=== PATIENT | female | born 1945 | race Caucasian/White ===

== ENCOUNTER 2019-01-13 05:34 | Inpatient (IN) | payer OTHER ==
[2019-01-01 13:09] LABS: HEMATOCRIT 41.5 % (37.0-47.0); HEMOGLOBIN 13.8 gm/dL (12.0-15.0); MCH 29.6 pg (26.0-34.0); MCHC 33.3 g/dL (28.0-37.0); RBC 4.67 mil/uL (4.20-5.00); RDW 13.6 % (10.5-14.5); WBC 5.8 thou/uL (4.0-11.0)
[2019-01-01 13:10] LABS: URINE BILIRUBIN NEGATIVE (Negative); URINE BLOOD TRACE (Negative); URINE CLARITY CLEAR; URINE COLOR YELLOW; URINE GLUCOSE-RANDOM* NEGATIVE (Negative); URINE KETONES NEGATIVE (Negative); URINE LEUKOCYTES-REFLEX NEGATIVE (Negative); URINE NITRITE-REFLEX NEGATIVE (Negative); URINE PROTEIN (DIPSTICK) NEGATIVE (Negative); URINE SPECIFIC GRAVITY <= 1.005 (1.005-1.035); URINE UROBILINOGEN 0.2 E.U./dl (0.2-1.0)
[2019-01-01 13:19] LABS: CALCIUM 9.4 mg/dL (8.5-10.1); CREATININE 0.8 mg/dL (0.6-1.0); POTASSIUM 3.9 mmol/L (3.5-5.1)
[2019-01-01 13:21] LABS: INR 1.1; PROTIME 11.5 Seconds (9.3-11.4)
[~2019-01-13] VITALS: Ht 162.6 cm; Wt 86.6 kg
[~2019-01-13 05:34] MED LIST: ADVIL200 M3 PO; ARIMIDEX1 MG PO; ASPIR 8181 MG PO; ASPIRIN81 M2 PO; AZELASTINE137 MCG/0. NASAL; BENEFIBER152 GM PO; CITRACAL PETITES PO; COLACE100 MG PO; ELIDEL CREAM 1%30 G1 TOP; FLONASE 0.05%50 MCG NASAL; FLUTICASONE PRO30 G1; HYDROCODONE-AP1 EAC6 PO; IBUPROFEN200 MG PO; METROGEL60 GM; MUCUS RELIEF C400 MG PO; ONDANSETRON HCL4 M2 PO; PATANOL5 ML OPHTHALMIC; PREVACID15 MG PO; PROTONIX40 M2 PO; RAPAFLO8 MG PO; TRIAMCINOLONE A80 G2; ULTRAM 50MG TAB50 MG PO
[2019-01-13 08:13] VITALS: BP 142/70
[2019-01-13 13:30] VITALS: BP 143/75
[2019-01-13 15:49] VITALS: BP 128/59
--- NOTE | 2019-01-13 17:18 | NUR ---
ASSESMENT COMPLETED. VSS. A/O. PAIN MANAGED BY MEDS ORDERED. NO NOTED SOA. NO NV. JANESSA DRESSING CDI. HEMOVAC INTACT. PT RESTING IN BED APPEARS COMFORTABLE. WILL CONT. TO MONITOR.
[2019-01-13 19:50] VITALS: BP 118/56
[2019-01-14 02:30] VITALS: BP 118/67
--- NOTE | 2019-01-14 03:00 | NUR ---
Assumed care of pt at 1900. Pt alert and oriented x4. Post-op right hip. Lucho dressing intact. Hemovac drain in place. 140 ml output from hemovac overnight. Abductor pillow in place. Prn pain meds administered. Weight bearing as tolerated. Fall precautions in place. Call light within reach. Will continue to monitor and assist with needs.
[2019-01-14 05:15] LABS: HEMATOCRIT 33.2 % (37.0-47.0); HEMOGLOBIN 11.2 gm/dL (12.0-15.0); MCH 29.8 pg (26.0-34.0); MCHC 33.7 g/dL (28.0-37.0); MCV 88.4 fL (80.0-100.0); RBC 3.76 mil/uL (4.20-5.00); RDW 13.6 % (10.5-14.5); WBC 8.1 thou/uL (4.0-11.0)
[2019-01-14 07:25] VITALS: BP 113/60
--- NOTE | 2019-01-14 07:29 | O ---
[facility] [place] [address] OPERATIVE REPORT Name: MECHELLE TYSON Room #: 418-P [facility] IN M.R.#: [id number] Admission: 01/13/19 ������������������ Attend Phys: Randy Watts MD Discharge: ������������������ Date of : 45 Report #: [id number] THIS REPORT FOR: //name// CC: Carla Watts DATE OF SERVICE: 01/13/2019 PREOPERATIVE DIAGNOSIS: End-stage degenerative osteoarthritis, right hip. POSTOPERATIVE DIAGNOSIS: End-stage degenerative osteoarthritis, right hip. PROCEDURE: Right total hip arthroplasty. SURGEON: Randy Watts MD INDICATIONS: This still active, fully independent 73-year-old female has problems with chronic degenerative osteoarthritis in multiple areas. She has already had bilateral total knee replacements and left total hip replacement. She now presents for right total hip replacement. She does have significant right hip pain limiting her ability to function and ambulate. Clinical and radiographic findings are consistent with end-stage degenerative osteoarthritis. She and her family understand the options and risks and benefits well and wished to go ahead with right total hip arthroplasty at this time. DESCRIPTION OF PROCEDURE: The patient was taken to the operating room where she was placed under general anesthesia. Prophylactic intravenous antibiotics were administered. She was turned to the left lateral decubitus position. The right hip, thigh and leg were meticulously prepped and draped. A slightly curving posterolateral skin incision was made centered over the greater trochanter. This was extended through the fascia and the gluteus was spread bluntly exposing the posterior aspect of the hip joint. The short external rotators and capsule were taken down and tagged with several #1 Tevdek sutures. The hip was dislocated and significant degenerative change on the femoral head and acetabulum was noted. A femoral neck osteotomy was performed and the canal was opened with reamers and hand broaches. The Arellano and Nephew hip system was utilized and a size 12 press-fit stem seemed to fit nicely. This trial broach was removed and attention directed to the acetabulum. Good exposure was established and the acetabulum was sequentially reamed, gradually advancing to a 54 mm reamer which appeared to be tight. A 54 mm cup was then brought onto the field. This is a Arellano and Nephew 3-hole StikTite coated shell. This was impacted into her true acetabulum in her normal alignment, which positioned this in about 45 degrees off vertical and about 25 degrees of anteversion. It seated nicely and appeared to be very secure. In addition, 2 cancellous screws were placed through the upper aspect of the shell engaging good periacetabular bone with solid fixation. A 36-mm diameter polyethylene liner was then inserted. [address] [address] OPERATIVE REPORT Name: NENITA TYSONHAFSA Christian Room #: 418-P [facility] IN M.R.#: [id number] Admission: 01/13/19 ������������������ Attend Phys: Randy Watts MD Discharge: ������������������ Date of : 45 Report #: [id number] This was placed with the 20-degree elevated ramos at about the 10 o'clock posterior position. It seated nicely and appeared to be secure. A trial reduction was then performed using the size 12 femoral stem and a lateral offset with a +4 mm neck length seemed to fit nicely. The trial component was removed. The canal was trimmed to an appropriate level. The permanent Arellano and Nephew size 12 Synergy high offset femoral component was then inserted. This was impacted into position, placing this in about 20 degrees of anteversion. It seated nicely and appeared to be secure. A +4 mm neck length with a 36 mm chrome head was then selected. This was impacted onto the Darling taper and seated nicely and appeared to be secure. A trial reduction was again performed and again the hip demonstrated satisfactory range of motion and stability with symmetric leg length with the opposite side. The short external rotators and capsule were then repaired back to bone using the #1 Tevdek sutures passed through small drill holes in the greater trochanter. This added also to the overall hip stability. A single Hemovac was then left in the wound exiting through a separate stab incision. The fascia was closed with multiple #1 Vicryl sutures. The subcutaneous tissues were closed with 0 Monocryl. The skin was closed with skin anna. Sterile dressing was applied. The patient was awakened and returned to the recovery room in good condition. ��������������������������������������������� <ELECTRONICALLY SIGNED> ���������������������������������������� By: Randy Watts MD ��������������������������������������������� 01/14/19 0729 [id number] Randy Watts MD /nt
--- NOTE | 2019-01-14 10:15 | NUR ---
INITIAL ASSESSMENT: Pt evaluated for d/c planning needs. Reviewed chart and spoke with nurse, pt and daughter. Pt is alert and oriented. Pt lives in 1 level house with sewing room in basement. Pt was independent with ADl's prior to admission to the hospital and was still driving. Pt's spouse last fall. Pt has walker and cane at home. Pt said that someone from [facility] called her and made arrangements for home health. Pt plans on returning home with home health on d/c from hospital. Will remain available to assist as needed.
--- NOTE | 2019-01-14 15:30 | NUR ---
REPORT GIVEN TO NURSE IN SENIOR SUITES PATIENT MOVING TO ROOM 225. ALL BELONGINGS TO BE BE PACKED AND SENT WITH PATIENT.
[2019-01-14 16:38] VITALS: BP 152/67
--- NOTE | 2019-01-14 17:21 | NUR ---
PATIENT MOVED TO SENIOR SUITES ROOM 225 AT THIS TIME.
--- NOTE | 2019-01-14 18:40 | NUR ---
PATIENT ARRIVED TO UNIT BY [employer] [employer]SPORT AT APPROX 1800. PATIENT ORIENTED AND SETTLED TO UNIT. PATIENT IS CURRENTLY SITTING IN THE CHAIR WITH CHAIR ALARM ON. SON IS IN THE ROOM VISITING.
--- NOTE | 2019-01-15 03:06 | NUR ---
Assumed pt care at 1900. Pt. reamins A&Ox3; swallows meds whole w/o difficulty. Remains cont. B&B. Ambulates to bathroom w/ standby asst + walker; gait steady. R hand SL intact/flushed w/ NS w/o difficulty. Glasses noted. Remains s/p total R hip replacement. Dry drainage noted to DRSG on R hip. Knee high Shaheen hose intact. Pt remains WBAT. Last BM 01/13/19, per pt. Pt has no c/o pain or discomfort, at this time. No s/s of acute distress noted. Pt. asleep in bed w/ call light/desired belongings within reach. PO fluids encouraged. Will continue to monitor.
[2019-01-15 06:38] LABS: HEMATOCRIT 34.6 % (37.0-47.0); HEMOGLOBIN 11.5 gm/dL (12.0-15.0); MCH 29.5 pg (26.0-34.0); MCHC 33.2 g/dL (28.0-37.0); MCV 88.7 fL (80.0-100.0); RBC 3.9 mil/uL (4.20-5.00); RDW 13.5 % (10.5-14.5); WBC 9.4 thou/uL (4.0-11.0)
[2019-01-15 08:08] VITALS: BP 130/70
--- NOTE | 2019-01-15 13:32 | NUR ---
ASSUMED CARE OF PATIENT THIS MORNING. PATIENT IS A&OX4. SHE GETS UP WITH SBA AND WALKER, WBAT. SHE RECIEVED 1 HYDROCODONE THIS MORNING BEFORE WORKING WITH THERAPY. PATIENT HAS HAD SOME REDNESS ALONG HER NECK AND CHEST AREA, WHICH SHE THINKS IS DUE TO REACTION OF THE GOWN AND PILLOW CASE FROM THE WASHING DETERGENT USED. SHE TOLERATED HER MORNING MEDICATIONS. SHE WORKED WITH PT. AND WAS ABLE TO TOLERATE AMBULATING IN THE HALLWAY. PATIENT CLEANED HERSELF UP IN THE BATHROOM THIS MORNING BEFORE BREAKFAST ARRIVED. SHE IS CURRENTLY SITTING IN THE RECLINER WITH CALL LIGHT WITHIN REACH.
--- NOTE | 2019-01-15 15:33 | NUR ---
Followup visit made with the pt to discuss dc planning needs and options for f/u care. The pt is feeling better today and did well with PT. She does not feel she will need a SNF stay at [place]. She will be homebound and would prefer HH services. She reports outpt therapy is not realistic as she does not feel she is ready to be in and out of the house for therapy visits and has limited tansportation options. Her son is taking a week of vacation to stay with her. She has needed dme in place at home. She is denies preference for HH f/u and can not recall the agency she had a few years ago. She did want a snf list to take home should she need a back up plan. Listing provided. Choice letter reviewed and signed by the pt. Will check with [facility] to see if they can service her area and they work with the joint program. Possible dc tomorrow or Sunday pending her progress with therapy.
[2019-01-15 15:38] VITALS: BP 130/70
--- NOTE | 2019-01-15 15:54 | NUR ---
DISCHARGE PLANNING. ANTICIPATED DISCHARGE FOR SUNDAY OR SUNDAY. HOME HEALTH RECOMMENDED AT DISCHARGE. REFERRAL FAXED TO [facility] FOR HH NEEDS. CALL PLACED TO [facility] INTAKE, SPOKE WITH KIA. NOTIFIED KIA OF REFERRAL FAXED TO HER AND PATIENTS DISCHARGE NEEDS AND DATE. KIA TO REVIEW REFERRAL AND CONTACT CM ONCE COMPLETE. UNIT CM/SW AWARE. FOLLOWING TO ASSIST.
[2019-01-15 19:42] VITALS: BP 134/74
--- NOTE | 2019-01-16 02:11 | NUR ---
Assumed pt. care at 1900. Pt. Remains A&Ox3; swallows meds whole w/o difficulty. Remains cont. B&B. Ambulates to bathroom w/ standby asst + walker; gait steady. Remains s/p R total hip. Lucho DRSG to site remains intact; dry, red drainage noted to DRSG. R hand SL noted; flushed w/ NS w/o difficulty; no blood return noted. Knee high teds intact to BLEs. Pt encouraged to utilize Incentive Spirometer. Pt. has no c/o pain or discomfort. No s/s of acute distress noted. Pt asleep in bed w/ call light/desired belongings within reach. Po fluids encouraged. Will continue to monitor.
[2019-01-16 06:45] LABS: HEMATOCRIT 31.9 % (37.0-47.0); HEMOGLOBIN 10.6 gm/dL (12.0-15.0); MCH 29.8 pg (26.0-34.0); MCHC 33.2 g/dL (28.0-37.0); MCV 89.6 fL (80.0-100.0); RBC 3.56 mil/uL (4.20-5.00); RDW 13.3 % (10.5-14.5); WBC 6.8 thou/uL (4.0-11.0)
[2019-01-16 08:05] VITALS: BP 116/59
--- NOTE | 2019-01-16 12:11 | NUR ---
DISCHARGE NOTE: SW reviewed chart and spoke with nursing and attending physician. Pt is medically stable for discharge home today with [facility]. SW met with pt and dtr at bedside to discuss discharge plan. [facility] liaison met with pt and dtr earlier today. SW confirmed pt's home address and phone number. Pt's PCP is Dr. Carla Morejon. Pt's family to provide transportation home. Awaiting final discharge orders for HH. Pt's RN paged ortho for HH orders. Contact info for [facility] placed in pt's discharge summary. No additional SW needs identified at this time, but is available to assist should needs arise.
--- NOTE | 2019-01-16 16:58 | NUR ---
PATIENT CARE WAS ASSUMED AT 0715.PATIENT IS ALERT AND ORIENTED X4.PT HAS PAIN 3/10 THIS MORNING WILL GIVE PAIN MEDS WITH MORNING MED PASS TO STAY ON TOP OF PAIN.PT CALLS WHEN SHE NEEDS TO GET UP WITH WALKER, AND GAIT BELT.PT HAS CALL LIGHT,PHONE, AND PERSONAL BELONGINGS WITHIN REACH.
--- NOTE | 2019-01-16 17:28 | NUR ---
PATIENT WAS DISCHARGED TO GO HOME WITH HOME HEALTH. IV WAS TAKEN OUT GAUZE PLACED WITH TAPE.D/C PAPERWORK WAS GIVEN WITH EDUATION ON NEW MEDICATIONS.PATIENT HAS NO QUESTIONS AT THIS TIME. PT HAS SON TAKING HER HOME HIS CAR.PATIENT WAS TAKEN DOWN TO CAR VIA W/C WITH TRANSPORATATION.PATIENT HAS ALLOF HER BELONGINGS.
--- NOTE | 2019-01-17 10:36 | D ---
[facility] [place] [address] DISCHARGE SUMMARY Name: MECHELLE TYSON Room #: 225-P [facility] IN M.R.#: [id number] Admission: 01/13/19 ������������������ Attend Phys: Randy Watts MD Discharge: 01/16/19 ������������������ Date of : 45 Report #: [id number] THIS REPORT FOR: //name// CC: Carla Watts DATE OF SERVICE: 01/16/2019 FINAL DIAGNOSIS: End-stage degenerative osteoarthritis, right hip. OPERATIONS AND PROCEDURES: Right total hip arthroplasty. HISTORY OF PRESENT ILLNESS: This 73-year-old female has progressive right hip pain with clinical and radiographic evidence of severe end-stage degenerative osteoarthritis. She has elected to go ahead with total hip arthroplasty. HOSPITAL COURSE: The patient was taken to the operating room on 01/13/2019. She underwent right total hip arthroplasty, which she tolerated quite well. Postoperatively, her course has been largely unremarkable. She has been able to manage with oral pain medication in a tapering dose. She has been on a regular diet. She has advanced activity with physical therapy assistance and is now safe and independent using a walker for balance with full weightbearing. The dressing is dry. Her hemoglobin is stable. She seems ready for discharge home today with family assistance. DISCHARGE MEDICATIONS: Include Rapaflo 8 mg daily, Protonix 40 mg daily, Xarelto 10 mg daily, hydrocodone 10/325 one every 6 hours p.r.n. for pain. She will continue with a gentle independent activity and exercise at home and will begin outpatient therapy next week. She will call me if any problems or questions. I will see her back in my office in 1 week for followup in 2 weeks for suture removal. ��������������������������������������������� <ELECTRONICALLY SIGNED> ���������������������������������������� By: Randy Watts MD ��������������������������������������������� 01/17/19 1036 [id number] Randy Watts MD /nt
== END 2019-01-16 17:31 | disposition home health service (06) | DRG 470 ==
LOC: 4E 05:34 → TBA 05:34 → PRE 05:58 → 4E 13:36 → ENTRNSPT 01-14 17:14 → SICU 01-14 17:54 → ENTRNSPT 01-16 16:34 → SICU 01-16 17:31
PROVIDERS: ADMIT Orthopaedic Surgery
PROC: 0SR901A Replacement of Right Hip Joint with Metal Synthetic Substitute, Uncemented, Open Approach (ICD-10-PCS; principal; 2019-01-13)
DX: M16.11 Unilateral primary osteoarthritis, right hip (principal); D64.9 Anemia, unspecified; K21.9 Gastro-esophageal reflux disease without esophagitis; Z96.653 Presence of artificial knee joint, bilateral; Z88.6 Allergy status to analgesic agent; Z88.1 Allergy status to other antibiotic agents; Z88.2 Allergy status to sulfonamides; Z88.8 Allergy status to other drugs, medicaments and biological substances; Z79.899 Other long term (current) drug therapy
CPT/HCPCS: 10783; 15002; 50010; 50101; 50382; 50414; 51412; 53000; 53367; 56521; 56525; 56527; 57095; 62110; 62900; 70005